=== PATIENT | female | born 1975 | race Native Hawaiian/Other Pacific Islander ===

== ENCOUNTER 2019-07-29 08:51 | Outpatient (CLI) | payer BC ==
[~2019-07-29 08:51] MED LIST: ALBUTEROL2 MG/5 ML PO; CEFD300C2 PO; LORA10TA3 PO; MEDROL DOSEPAK4 MG OR
== END 2019-07-29 21:14 | disposition home or self-care (01) ==
LOC: MAMMO 08:51
DX: Z12.31 Encounter for screening mammogram for malignant neoplasm of breast (principal)

== ENCOUNTER 2020-07-31 08:14 | Outpatient (CLI) | payer BC | END 2020-07-31 19:26 | disposition home or self-care (01) | LOC: MAMMO 08:14 | PROVIDERS: ATTEND Obstetrics & Gynecology | DX: Z12.31 Encounter for screening mammogram for malignant neoplasm of breast (principal) ==

== ENCOUNTER 2021-08-03 08:21 | Outpatient (CLI) | payer OTHER | END 2021-08-03 18:55 | disposition home or self-care (01) | LOC: MAMMO 08:21 | PROVIDERS: ATTEND Obstetrics & Gynecology | DX: Z12.31 Encounter for screening mammogram for malignant neoplasm of breast (principal) ==